=== PATIENT | male | born 1980 | race Caucasian/White ===

== ENCOUNTER 2021-12-13 11:24 | Inpatient (IN) ==
[2021-12-13] MEDS ORDERED: ULTANE GAS IN ONE (11:40)
[2021-12-13] MEDS ORDERED: KETAMINE HCL ONE (11:40)
[2021-12-13] MEDS ORDERED: XYLOCAINE 2 % (PLAIN) ONE (11:40)
[2021-12-13] MEDS: LR 1,000 ML IV 1,000 ML IV SCH ×2 (13:00→21:45)
[2021-12-13 13:22] LABS: BASOPHILS # (AUTO) 0.1 X10^3/uL (0.0-0.1); BASOPHILS % (AUTO) 0.9 % (0.2-1.0); EOSINOPHILS # (AUTO) 0.3 x10^3/uL (0.0-0.2); EOSINOPHILS % (AUTO) 2.5 % (0.9-2.9); HEMATOCRIT 44.6 % (42.0-54.0); HEMOGLOBIN 15.5 g/dL (13.5-18.0); LYMPHOCYTES # (AUTO) 4.9 X10^3/uL (1.3-2.9); MEAN CORPUSCULAR HEMOGLOBIN 30.2 pg (27.0-34.0); MEAN CORPUSCULAR HGB CONC 34.6 g/dL (33.0-35.0); MEAN CORPUSCULAR VOLUME 87.2 fL (80.0-100.0); MEAN PLATELET VOLUME 9.3 fL (7.4-11.0); MONOCYTES # (AUTO) 0.7 x10^3/uL (0.3-0.8); MONOCYTES % (AUTO) 6.1 % (0.0-13.0); NEUTROPHILS # (AUTO) 5.7 x10^3/uL (2.2-4.8); NEUTROPHILS % (AUTO) 48.5 % (42.0-75.0); RED BLOOD COUNT 5.12 X10^6/uL (4.7-6.0); RED CELL DISTRIBUTION WIDTH 20.6 % (11.6-16.5); WHITE BLOOD COUNT 11.7 X10^3/uL (3.6-10.0)
[2021-12-13 13:27] LABS: AMMONIA 15 umol/L (11-32)
[2021-12-13 13:31] LABS: BAND NEUTROPHILS % 2 % (0-10)
[2021-12-13 13:34] LABS: METAMYELOCYTES % 1
[2021-12-13 13:35] LABS: ANISOCYTOSIS 1+; PLATELET MORPHOLOGY COMMENT NORMAL (NORMAL)
[2021-12-13 13:39] LABS: ALANINE AMINOTRANSFERASE 150 Units/L (12-78); ALBUMIN 2.8 g/dL (3.4-5.0); ALKALINE PHOSPHATASE 551 Units/L (46-116); ASPARTATE AMINO TRANSFERASE 95 Units/L (15-37); BLOOD UREA NITROGEN 8 mg/dL (7-18); CALCIUM 8.7 mg/dL (8.5-10.1); CARBON DIOXIDE 22.4 mmol/L (21-32); CHLORIDE 99 mmol/L (98-107); COR CA(FOR HYPOALB) 9.7 mg/dL (8.5-10.1); COR NA(FOR HYPERGLY) 133 mmol/L (136-145); CREATININE 0.62 mg/dL (0.70-1.30); HDL CHOLESTEROL 11 mg/dL (40-60); SODIUM 133 mmol/L (136-145); TOTAL PROTEIN 8.2 g/dL (6.4-8.2); TRIGLYCERIDES 442 mg/dL (0-150); eGFR NON BLACK RACES > 60 (>60)
[2021-12-13 13:42] VITALS: BMI 29.7
[2021-12-13 13:54] LABS: CHOL/HDL RATIO 35.6 (0.0-5.0); CHOLESTEROL 392 mg/dL (0-200)
[2021-12-13] MEDS ORDERED: NS 100 ML IV 100 ML ONE (15:14)
[2021-12-13] MEDS: ZESTRIL TAB 10 MG PO SCH (15:35)
[2021-12-13] MEDS: VISTARIL PO PRN (23:49)
[2021-12-14] MEDS: LR 1,000 ML IV 1,000 ML IV SCH ×3 (04:50→20:59)
[2021-12-14 06:03] LABS: BASOPHILS # (AUTO) 0.3 X10^3/uL (0.0-0.1); BASOPHILS % (AUTO) 2.8 % (0.2-1.0); EOSINOPHILS # (AUTO) 0.2 x10^3/uL (0.0-0.2); EOSINOPHILS % (AUTO) 2.3 % (0.9-2.9); HEMATOCRIT 38.5 % (42.0-54.0); HEMOGLOBIN 13.7 g/dL (13.5-18.0); LYMPHOCYTES # (AUTO) 5.6 X10^3/uL (1.3-2.9); LYMPHOCYTES % (AUTO) 53.8 % (21.0-51.0); MEAN CORPUSCULAR HEMOGLOBIN 30.4 pg (27.0-34.0); MEAN CORPUSCULAR HGB CONC 35.6 g/dL (33.0-35.0); MEAN CORPUSCULAR VOLUME 85.3 fL (80.0-100.0); MEAN PLATELET VOLUME 9.5 fL (7.4-11.0); MONOCYTES # (AUTO) 0.8 x10^3/uL (0.3-0.8); MONOCYTES % (AUTO) 8.2 % (0.0-13.0); NEUTROPHILS # (AUTO) 3.4 x10^3/uL (2.2-4.8); NEUTROPHILS % (AUTO) 32.9 % (42.0-75.0); RED BLOOD COUNT 4.51 X10^6/uL (4.7-6.0); RED CELL DISTRIBUTION WIDTH 20.5 % (11.6-16.5); WHITE BLOOD COUNT 10.3 X10^3/uL (3.6-10.0)
[2021-12-14 06:18] LABS: ALANINE AMINOTRANSFERASE 125 Units/L (12-78); ALBUMIN 2.4 g/dL (3.4-5.0); ALKALINE PHOSPHATASE 486 Units/L (46-116); ASPARTATE AMINO TRANSFERASE 85 Units/L (15-37); BLOOD UREA NITROGEN 7 mg/dL (7-18); CALCIUM 8.3 mg/dL (8.5-10.1); CARBON DIOXIDE 23.5 mmol/L (21-32); CHLORIDE 101 mmol/L (98-107); COR CA(FOR HYPOALB) 9.6 mg/dL (8.5-10.1); COR NA(FOR HYPERGLY) 135 mmol/L (136-145); CREATININE 0.55 mg/dL (0.70-1.30); SODIUM 135 mmol/L (136-145); eGFR NON BLACK RACES > 60 (>60)
[2021-12-14 06:28] LABS: BAND NEUTROPHILS % 3 % (0-10)
[2021-12-14 06:29] LABS: ANISOCYTOSIS 1+; PLATELET MORPHOLOGY COMMENT NORMAL (NORMAL); TARGET CELLS 1+
[2021-12-14] MEDS: ZESTRIL TAB 10 MG PO SCH (08:48)
--- NOTE | 2021-12-14 12:57 | MRI ---
HISTORYJAUNDICE, ACOLIC STOOLSSTUDYMRI ABDOMEN W/WO CONTRASTCOMPARISONNoneTECHNIQUEMultiplan ar multi-sequence MRI of the abdomen with MRCP obtained without and with IV contrast.FINDINGSUnremarkable appearance of the liver. Cholelithiasis with stones in the gallbladder neck. The gallbladder is mildly distended. No intra or extrahepatic biliary ductal dilatation.The spleen pancreas, bilateral adrenal glands, and bilateral kidneys demonstrate no significant abnormality.Expected vascular flow voids. Marrow signal is benign. No free fluid in the abdomen.IMPRESSIONCholelithiasis. No evidence of choledocholithiasis. No biliary ductal dilatation. Nuclear medicine HIDA scan could better evaluate if clinical concern for acute cholecystitis.Electronically signed by: ANDRE ARANGO (Dec 14, 2021 12:54:57)
[2021-12-15] MEDS: LR 1,000 ML IV 1,000 ML IV SCH (04:41)
[2021-12-15 06:38] LABS: BASOPHILS # (AUTO) 0.2 X10^3/uL (0.0-0.1); BASOPHILS % (AUTO) 1.9 % (0.2-1.0); EOSINOPHILS # (AUTO) 0.4 x10^3/uL (0.0-0.2); EOSINOPHILS % (AUTO) 4.2 % (0.9-2.9); HEMATOCRIT 43.2 % (42.0-54.0); HEMOGLOBIN 14.8 g/dL (13.5-18.0); LYMPHOCYTES # (AUTO) 5.2 X10^3/uL (1.3-2.9); LYMPHOCYTES % (AUTO) 50.5 % (21.0-51.0); MEAN CORPUSCULAR HEMOGLOBIN 29.9 pg (27.0-34.0); MEAN CORPUSCULAR HGB CONC 34.3 g/dL (33.0-35.0); MEAN PLATELET VOLUME 9.1 fL (7.4-11.0); MONOCYTES # (AUTO) 0.9 x10^3/uL (0.3-0.8); MONOCYTES % (AUTO) 8.8 % (0.0-13.0); NEUTROPHILS # (AUTO) 3.6 x10^3/uL (2.2-4.8); NEUTROPHILS % (AUTO) 34.6 % (42.0-75.0); RED BLOOD COUNT 4.96 X10^6/uL (4.7-6.0); RED CELL DISTRIBUTION WIDTH 20.9 % (11.6-16.5); WHITE BLOOD COUNT 10.4 X10^3/uL (3.6-10.0)
[2021-12-15 06:54] LABS: ALANINE AMINOTRANSFERASE 128 Units/L (12-78); ALBUMIN 2.6 g/dL (3.4-5.0); ALKALINE PHOSPHATASE 537 Units/L (46-116); ASPARTATE AMINO TRANSFERASE 87 Units/L (15-37); BLOOD UREA NITROGEN 7 mg/dL (7-18); CALCIUM 8.7 mg/dL (8.5-10.1); CARBON DIOXIDE 22.9 mmol/L (21-32); CHLORIDE 100 mmol/L (98-107); COR CA(FOR HYPOALB) 9.8 mg/dL (8.5-10.1); SODIUM 135 mmol/L (136-145); TOTAL PROTEIN 7.7 g/dL (6.4-8.2); eGFR NON BLACK RACES > 60 (>60)
[2021-12-15 07:33] LABS: ANISOCYTOSIS 1+; PLATELET MORPHOLOGY COMMENT NORMAL (NORMAL); TARGET CELLS 2+
[2021-12-15] MEDS: ZESTRIL TAB 10 MG PO SCH (09:05)
[2021-12-15] MEDS: NS 1,000 ML IV 1,000 ML IV SCH ×2 (13:50→20:24)
[2021-12-15] MEDS ORDERED: LR 1,000 ML IV 1,000 ML IV ONE (14:50)
[2021-12-15] MEDS ORDERED: ANCEF VIAL 1 GRAM ONE (14:50)
[2021-12-15] MEDS ORDERED: NS 100 ML IV 100 ML ONE (14:50)
[2021-12-15] MEDS ORDERED: DIPRIVAN VIAL 20 ML ONE (15:06)
[2021-12-15] MEDS ORDERED: OFIRMEV IV 1000 MG VIAL 0 MG/0 ML VIAL IV ONE (15:06)
[2021-12-15] MEDS ORDERED: ZOFRAN INJ 4 MG VIAL ONE (15:06)
[2021-12-15] MEDS ORDERED: PEPCID 20 MG VIAL ONE (15:06)
[2021-12-15] MEDS ORDERED: BRIDION ONE ×2 (15:06→17:21)
[2021-12-15] MEDS ORDERED: ZEMURON 100 MG VIAL ONE (15:06)
[2021-12-15] MEDS ORDERED: ROBINUL ONE ×2 (15:06→15:39)
[2021-12-15] MEDS ORDERED: VERSED ONE (15:09)
[2021-12-15] MEDS ORDERED: FENTANYL VIAL INJ 100 mcg ONE ×2 (15:09→16:56)
[2021-12-15] MEDS ORDERED: LACRI-LUBE S.O.P. ONE (15:48)
[2021-12-15] MEDS ORDERED: DECADRON INJ ONE (16:04)
[2021-12-15] MEDS ORDERED: NS 1,000 ML IV 2,000 ML ONE (16:12)
[2021-12-15] MEDS ORDERED: BREVIBLOC ONE (16:14)
[2021-12-15] MEDS ORDERED: DILAUDID INJ ONE (17:16)
[2021-12-15] MEDS ORDERED: BACTROBAN TOPICAL OINT ONE (17:28)
[2021-12-15] MEDS: DILAUDID INJ IVP PRN ×2 (17:45→17:50)
[2021-12-15] MEDS ORDERED: REGLAN INJ 10 MG VIAL IVP PRN (17:49)
[2021-12-15] MEDS ORDERED: ZOFRAN INJ 4 MG VIAL IVP PRN (17:49)
[2021-12-15] MEDS ORDERED: BENADRYL INJ 50 MG VIAL IVP PRN (17:49)
[2021-12-15] MEDS ORDERED: PHENERGAN INJ 25 MG IM PRN (17:49)
[2021-12-15] MEDS ORDERED: BARHEMSYS INJ IVP PRN (17:49)
[2021-12-15] MEDS: NICOTINE PATCH TD SCH ×2 (20:36→20:40)
[2021-12-15 23:08] LABS: BILIRUBIN,URINE 2+ (NEGATIVE); BLOOD/HEMOGLOBIN,URINE 1+ (NEGATIVE); GLUCOSE, URINE NEGATIVE (NEGATIVE); KETONES,URINE NEGATIVE (NEGATIVE); LEUKOCYTE ESTERASE ,URINE NEGATIVE (NEGATIVE); NITRITES,URINE NEGATIVE (NEGATIVE); PROTEIN,URINE NEGATIVE (NEGATIVE); UROBILINOGEN,URINE 1+ (NORMAL)
[2021-12-15 23:17] LABS: APPEARANCE,URINE HAZY (CLEAR); COLOR,URINE DARK YELLOW (YELLOW)
[2021-12-15 23:18] LABS: BACTERIA,URINE TRACE /HPF (NEGATIVE); RBC,URINE 0-2 /HPF (0-3); SQUAMOUS EPITHELIAL CELL,UR RARE /HPF (NEGATIVE)
[2021-12-16] MEDS: NS 1,000 ML IV 1,000 ML IV SCH ×3 (01:37→17:32)
[2021-12-16 06:16] LABS: HEPATITIS B SURFACE ANTIGEN Negative (Negative)
[2021-12-16 06:36] LABS: BASOPHILS # (AUTO) 0.4 X10^3/uL (0.0-0.1); BASOPHILS % (AUTO) 2.3 % (0.2-1.0); EOSINOPHILS % (AUTO) 0.1 % (0.9-2.9); HEMATOCRIT 39.4 % (42.0-54.0); HEMOGLOBIN 13.6 g/dL (13.5-18.0); LYMPHOCYTES # (AUTO) 4.6 X10^3/uL (1.3-2.9); LYMPHOCYTES % (AUTO) 26.6 % (21.0-51.0); MEAN CORPUSCULAR HGB CONC 34.5 g/dL (33.0-35.0); MEAN PLATELET VOLUME 9.6 fL (7.4-11.0); MONOCYTES # (AUTO) 0.5 x10^3/uL (0.3-0.8); MONOCYTES % (AUTO) 2.9 % (0.0-13.0); NEUTROPHILS # (AUTO) 11.8 x10^3/uL (2.2-4.8); NEUTROPHILS % (AUTO) 68.1 % (42.0-75.0); RED BLOOD COUNT 4.53 X10^6/uL (4.7-6.0); RED CELL DISTRIBUTION WIDTH 20.7 % (11.6-16.5); WHITE BLOOD COUNT 17.4 X10^3/uL (3.6-10.0)
[2021-12-16 06:38] LABS: ALANINE AMINOTRANSFERASE 105 Units/L (12-78); ALBUMIN 2.2 g/dL (3.4-5.0); ALKALINE PHOSPHATASE 486 Units/L (46-116); ASPARTATE AMINO TRANSFERASE 76 Units/L (15-37); BLOOD UREA NITROGEN 9 mg/dL (7-18); CALCIUM 8.3 mg/dL (8.5-10.1); CARBON DIOXIDE 25.2 mmol/L (21-32); CHLORIDE 99 mmol/L (98-107); COR CA(FOR HYPOALB) 9.7 mg/dL (8.5-10.1); COR NA(FOR HYPERGLY) 137 mmol/L (136-145); SODIUM 134 mmol/L (136-145); TOTAL PROTEIN 6.9 g/dL (6.4-8.2); eGFR NON BLACK RACES > 60 (>60)
[2021-12-16 07:23] LABS: BAND NEUTROPHILS % 4 % (0-10); MYELOCYTES % 1; PLATELET MORPHOLOGY COMMENT NORMAL (NORMAL)
[2021-12-16 07:24] LABS: ANISOCYTOSIS 1+; TARGET CELLS 2+
--- NOTE | 2021-12-16 07:52 | DR.PROGNOT ---
Hospital Progress Notes - Progress Note for Day of: Progress Note Date: 12/16/21 - Chief Complaint Chief Complaint: s/p partial cholecystectomy and removal of gallstones . 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 mild abdominal pain . no bile drainage in KEE . Bilirubun 10 . slight improvement of LFT . - Past Medical Family Social History Past Med/Fam/Surg Hx: No changes since H&P Allergies: Allergies No Known Drug Allergies Allergy (Verified 07/15/20 10:13) - Review Of Systems ROS: No change since H&P - Vital Signs Vital Signs: Temperature 98.8 F Pulse Rate [Radial] 78 Pulse Rate 75 Respiratory Rate 18 Blood Pressure [Right Arm] 133/75 Blood Pressure [Left Arm] 138/92 Blood Pressure 119/71 O2 Sat by Pulse Oximetry 97 - Physical Exam Oriented: Normal Ear: Normal Nose: Normal Respiratory: Normal Cardiovascular: Normal : Normal GI:Auscultation: Normal GI:Palpation: Normal GI: Tenderness: Diffuse Mood Description: Calm Speech Pattern: Clear, Appropriate - Laboratory and Diagnostics Result Diagrams: 12/16/21 05:16 12/16/21 05:16 Labs: 12/15/21 16:57 Gallbladder Fluid - Preliminary Laboratory WBC 17.4 X10^3/uL (3.6-10.0) H 12/16/21 05:16 RBC 4.53 X10^6/uL (4.7-6.0) L 12/16/21 05:16 Hgb 13.6 g/dL (13.5-18.0) 12/16/21 05:16 Hct 39.4 % (42.0-54.0) L 12/16/21 05:16 MCV 87.0 fL (80.0-100.0) 12/16/21 05:16 MCH 30.0 pg (27.0-34.0) 12/16/21 05:16 MCHC 34.5 g/dL (33.0-35.0) 12/16/21 05:16 RDW 20.7 % (11.6-16.5) H 12/16/21 05:16 Plt Count 346 X10^3/uL (150.0-450.0) 12/16/21 05:16 Plt Count Comment Adequate (ADEQUATE) 12/16/21 05:16 MPV 9.6 fL (7.4-11.0) 12/16/21 05:16 Neut % (Auto) 68.1 % (42.0-75.0) 12/16/21 05:16 Lymph % (Auto) 26.6 % (21.0-51.0) 12/16/21 05:16 [place] % (Auto) 2.9 % (0.0-13.0) 12/16/21 05:16 Eos % (Auto) 0.1 % (0.9-2.9) L 12/16/21 05:16 Baso % (Auto) 2.3 % (0.2-1.0) H 12/16/21 05:16 Neut # (Auto) 11.8 x10^3/uL (2.2-4.8) H 12/16/21 05:16 Lymph # (Auto) 4.6 X10^3/uL (1.3-2.9) H 12/16/21 05:16 [place] # (Auto) 0.5 x10^3/uL (0.3-0.8) 12/16/21 05:16 Eos # (Auto) 0.0 x10^3/uL (0.0-0.2) 12/16/21 05:16 Baso # (Auto) 0.4 X10^3/uL (0.0-0.1) H 12/16/21 05:16 Absolute Nucleated RBC 0.0 /100WBC 12/16/21 05:16 Total Counted 100 12/16/21 05:16 Neutrophils % (Manual) 75 % (39-76) 12/16/21 05:16 Band Neutrophils % 4 % (0-10) 12/16/21 05:16 Lymphocytes % (Manual) 17 % (13-43) 12/16/21 05:16 Monocytes % (Manual) 3 % (4-9) L 12/16/21 05:16 Eosinophils % (Manual) 5 % (0-6) 12/14/21 05:15 Metamyelocytes % 1 12/13/21 13:05 Myelocytes % 1 12/16/21 05:16 Plt Morphology Comment Normal (NORMAL) 12/16/21 05:16 RBC Morphology Abnormal (NORMAL) 12/16/21 05:16 Anisocytosis 1+ A 12/16/21 05:16 Target Cells 2+ A 12/16/21 05:16 Sodium 134 mmol/L (136-145) L 12/16/21 05:16 Corrected Sodium 137 mmol/L (136-145) 12/16/21 05:16 Potassium 3.8 mmol/L (3.5-5.1) 12/16/21 05:16 Chloride 99 mmol/L (98-107) 12/16/21 05:16 Carbon Dioxide 25.2 mmol/L (21-32) 12/16/21 05:16 BUN 9 mg/dL (7-18) 12/16/21 05:16 Creatinine 0.80 mg/dL (0.70-1.30) 12/16/21 05:16 Est GFR (MDRD) Af Amer > 60 (>60) 12/16/21 05:16 Est GFR (MDRD) Non-Af > 60 (>60) 12/16/21 05:16 Glucose 212 mg/dL (65-99) H 12/16/21 05:16 Calcium 8.3 mg/dL (8.5-10.1) L 12/16/21 05:16 Corrected Calcium 9.7 mg/dL (8.5-10.1) 12/16/21 05:16 Total Bilirubin 10.10 mg/dL (0.2-1.0) H 12/16/21 05:16 AST 76 Units/L (15-37) H 12/16/21 05:16 ALT 105 Units/L (12-78) H 12/16/21 05:16 Alkaline Phosphatase 486 Units/L (46-116) H 12/16/21 05:16 Ammonia 15 umol/L (11-32) 12/13/21 13:05 Total Protein 6.9 g/dL (6.4-8.2) 12/16/21 05:16 Albumin 2.2 g/dL (3.4-5.0) L 12/16/21 05:16 Globulin 4.7 g/dL (2.5-4.5) H 12/16/21 05:16 Albumin/Globulin Ratio 0.5 Ratio (1.1-2.1) L 12/16/21 05:16 Triglycerides 442 mg/dL (0-150) H 12/13/21 13:05 Cholesterol 392 mg/dL (0-200) H 12/13/21 13:05 LDL Cholesterol, Calc 293 mg/dL (0-100) H 12/13/21 13:05 HDL Cholesterol 11 mg/dL (40-60) L 12/13/21 13:05 Cholesterol/HDL Ratio 35.6 (0.0-5.0) H 12/13/21 13:05 Specimen Type Clean catch urine 12/15/21 23:01 Urine Color Dark yellow (YELLOW) 12/15/21 23:01 Urine Appearance Hazy (CLEAR) 12/15/21 23:01 Urine pH 6.0 (5.0 - 8.0) 12/15/21 23:01 Ur Specific [place] 1.015 (1.000-1.030) 12/15/21 23:01 Urine Protein Negative (NEGATIVE) 12/15/21 23:01 Urine Glucose (UA) Negative (NEGATIVE) 12/15/21 23:01 Urine Ketones Negative (NEGATIVE) 12/15/21 23:01 Urine Blood 1+ (NEGATIVE) 12/15/21 23:01 Urine Nitrite Negative (NEGATIVE) 12/15/21 23:01 Urine Bilirubin 2+ (NEGATIVE) 12/15/21 23:01 Urine Urobilinogen 1+ (NORMAL) 12/15/21 23:01 Ur Leukocyte Esterase Negative (NEGATIVE) 12/15/21 23:01 Urine RBC 0-2 /HPF (0-3) 12/15/21 23:01 Urine WBC 0-2 /HPF (0-5) 12/15/21 23:01 Ur Squamous Epith Cells Rare /HPF (NEGATIVE) 12/15/21 23:01 Urine Bacteria Trace /HPF (NEGATIVE) 12/15/21 23:01 Ur Culture Indicated? No/not indicated 12/15/21 23:01 SARS-CoV-2 (PCR) Negative (NEGATIVE) 12/14/21 10:15 Hepatitis A IgM Ab Negative (Negative) 12/13/21 13:05 Hep Bs Antigen Negative (Negative) 12/13/21 13:05 Hep Bs Ag Confirmation TNP 12/13/21 13:05 Hep B Core IgM Ab Negative (Negative) 12/13/21 13:05 Hepatitis C Ab Index 0.08 IV 12/13/21 13:05 Hepatitis C Interp Negative (Negative) 12/13/21 13:05 Hepatitis Interpret See note 12/13/21 13:05 Influenza Type A (PCR) Negative (NEGATIVE) 12/14/21 10:15 Influenza Type B (PCR) Negative (NEGATIVE) 12/14/21 10:15 RSV (PCR) Negative (NEGATIVE) 12/14/21 10:15 Cytology Specimen Cancelled 12/15/21 16:51 Tissue Pathology To follow 12/15/21 16:51 - Assessment and Plan 1: post op partial henry, removal of all gallstones .drainage , liver Bx . suspicion for sclerosing cholangitis ./. to advance diet .
[2021-12-16] MEDS: LEVAQUIN PREMIX IV 500 MG 500 MG/100 ML BAG IV SCH (09:10)
[2021-12-16] MEDS: NICOTINE PATCH TD SCH (09:11)
[2021-12-16] MEDS: ZESTRIL TAB 10 MG PO SCH (09:11)
[2021-12-16] MEDS: DILAUDID INJ IVP PRN (20:42)
[2021-12-17] MEDS: NS 1,000 ML IV 1,000 ML IV SCH ×3 (01:30→17:06)
[2021-12-17] MEDS: DILAUDID INJ IVP PRN ×3 (05:56→20:08)
[2021-12-17 06:04] LABS: BASOPHILS # (AUTO) 0.3 X10^3/uL (0.0-0.1); BASOPHILS % (AUTO) 2.2 % (0.2-1.0); EOSINOPHILS # (AUTO) 0.1 x10^3/uL (0.0-0.2); EOSINOPHILS % (AUTO) 0.9 % (0.9-2.9); HEMATOCRIT 39.5 % (42.0-54.0); HEMOGLOBIN 13.5 g/dL (13.5-18.0); LYMPHOCYTES % (AUTO) 13.7 % (21.0-51.0); MEAN CORPUSCULAR HEMOGLOBIN 29.9 pg (27.0-34.0); MEAN CORPUSCULAR HGB CONC 34.3 g/dL (33.0-35.0); MEAN CORPUSCULAR VOLUME 87.3 fL (80.0-100.0); MEAN PLATELET VOLUME 9.3 fL (7.4-11.0); MONOCYTES # (AUTO) 1.2 x10^3/uL (0.3-0.8); MONOCYTES % (AUTO) 8.4 % (0.0-13.0); NEUTROPHILS % (AUTO) 74.8 % (42.0-75.0); RED BLOOD COUNT 4.53 X10^6/uL (4.7-6.0); RED CELL DISTRIBUTION WIDTH 20.6 % (11.6-16.5); WHITE BLOOD COUNT 14.7 X10^3/uL (3.6-10.0)
[2021-12-17 06:16] LABS: ALANINE AMINOTRANSFERASE 87 Units/L (12-78); ALBUMIN 2.1 g/dL (3.4-5.0); ALKALINE PHOSPHATASE 434 Units/L (46-116); ASPARTATE AMINO TRANSFERASE 64 Units/L (15-37); BLOOD UREA NITROGEN 11 mg/dL (7-18); CALCIUM 7.8 mg/dL (8.5-10.1); CARBON DIOXIDE 24.2 mmol/L (21-32); CHLORIDE 101 mmol/L (98-107); COR CA(FOR HYPOALB) 9.3 mg/dL (8.5-10.1); COR NA(FOR HYPERGLY) 135 mmol/L (136-145); CREATININE 0.65 mg/dL (0.70-1.30); SODIUM 134 mmol/L (136-145); TOTAL PROTEIN 6.8 g/dL (6.4-8.2); eGFR NON BLACK RACES > 60 (>60)
[2021-12-17 06:43] LABS: BAND NEUTROPHILS % 2 % (0-10)
[2021-12-17 06:44] LABS: ANISOCYTOSIS 1+; PLATELET MORPHOLOGY COMMENT NORMAL (NORMAL); TARGET CELLS 2+
[2021-12-17] MEDS: LEVAQUIN PREMIX IV 500 MG 500 MG/100 ML BAG IV SCH (08:28)
[2021-12-17] MEDS: NICOTINE PATCH TD SCH (08:28)
[2021-12-17] MEDS: ZESTRIL TAB 10 MG PO SCH (08:28)
--- NOTE | 2021-12-17 09:20 | DR.PROGNOT ---
Hospital Progress Notes - Progress Note for Day of: Progress Note Date: 12/17/21 - Chief Complaint Chief Complaint: s/p partial cholecystectomy and removal of gallstones . 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 mild abdominal pain . no bile drainage in KEE . Bilirubun 8.6...Alk PH 434.. tolerating diet well. slight improvement of LFT . - Past Medical Family Social History Past Med/Fam/Surg Hx: No changes since H&P Allergies: Allergies No Known Drug Allergies Allergy (Verified 07/15/20 10:13) - Review Of Systems ROS: No change since H&P - Vital Signs Vital Signs: Temperature 97.3 F Pulse Rate [Radial] 74 Pulse Rate 64 Respiratory Rate 18 Blood Pressure [Right Arm] 137/80 Blood Pressure [Left Arm] 138/92 Blood Pressure 119/71 O2 Sat by Pulse Oximetry 95 - Physical Exam Oriented: Normal Ear: Normal Nose: Normal Respiratory: Normal Cardiovascular: Normal : Normal GI:Auscultation: Normal GI:Palpation: Normal GI: Tenderness: Diffuse Mood Description: Calm Speech Pattern: Clear, Appropriate - Laboratory and Diagnostics Result Diagrams: 12/17/21 05:13 12/17/21 05:13 Labs: 12/15/21 16:57 Gallbladder Fluid - Preliminary Laboratory WBC 14.7 X10^3/uL (3.6-10.0) H 12/17/21 05:13 RBC 4.53 X10^6/uL (4.7-6.0) L 12/17/21 05:13 Hgb 13.5 g/dL (13.5-18.0) 12/17/21 05:13 Hct 39.5 % (42.0-54.0) L 12/17/21 05:13 MCV 87.3 fL (80.0-100.0) 12/17/21 05:13 MCH 29.9 pg (27.0-34.0) 12/17/21 05:13 MCHC 34.3 g/dL (33.0-35.0) 12/17/21 05:13 RDW 20.6 % (11.6-16.5) H 12/17/21 05:13 Plt Count 337 X10^3/uL (150.0-450.0) 12/17/21 05:13 Plt Count Comment Adequate (ADEQUATE) 12/17/21 05:13 MPV 9.3 fL (7.4-11.0) 12/17/21 05:13 Neut % (Auto) 74.8 % (42.0-75.0) 12/17/21 05:13 Lymph % (Auto) 13.7 % (21.0-51.0) L 12/17/21 05:13 [place] % (Auto) 8.4 % (0.0-13.0) 12/17/21 05:13 Eos % (Auto) 0.9 % (0.9-2.9) 12/17/21 05:13 Baso % (Auto) 2.2 % (0.2-1.0) H 12/17/21 05:13 Neut # (Auto) 11.0 x10^3/uL (2.2-4.8) H 12/17/21 05:13 Lymph # (Auto) 2.0 X10^3/uL (1.3-2.9) 12/17/21 05:13 [place] # (Auto) 1.2 x10^3/uL (0.3-0.8) H 12/17/21 05:13 Eos # (Auto) 0.1 x10^3/uL (0.0-0.2) 12/17/21 05:13 Baso # (Auto) 0.3 X10^3/uL (0.0-0.1) H 12/17/21 05:13 Absolute Nucleated RBC 0.0 /100WBC 12/17/21 05:13 Total Counted 100 12/17/21 05:13 Neutrophils % (Manual) 79 % (39-76) H 12/17/21 05:13 Band Neutrophils % 2 % (0-10) 12/17/21 05:13 Lymphocytes % (Manual) 15 % (13-43) 12/17/21 05:13 Monocytes % (Manual) 3 % (4-9) L 12/17/21 05:13 Eosinophils % (Manual) 1 % (0-6) 12/17/21 05:13 Metamyelocytes % 1 12/13/21 13:05 Myelocytes % 1 12/16/21 05:16 Plt Morphology Comment Normal (NORMAL) 12/17/21 05:13 RBC Morphology Abnormal (NORMAL) 12/17/21 05:13 Anisocytosis 1+ A 12/17/21 05:13 Target Cells 2+ A 12/17/21 05:13 Sodium 134 mmol/L (136-145) L 12/17/21 05:13 Corrected Sodium 135 mmol/L (136-145) L 12/17/21 05:13 Potassium 3.4 mmol/L (3.5-5.1) L 12/17/21 05:13 Chloride 101 mmol/L (98-107) 12/17/21 05:13 Carbon Dioxide 24.2 mmol/L (21-32) 12/17/21 05:13 BUN 11 mg/dL (7-18) 12/17/21 05:13 Creatinine 0.65 mg/dL (0.70-1.30) L 12/17/21 05:13 Est GFR (MDRD) Af Amer > 60 (>60) 12/17/21 05:13 Est GFR (MDRD) Non-Af > 60 (>60) 12/17/21 05:13 Glucose 139 mg/dL (65-99) H 12/17/21 05:13 Calcium 7.8 mg/dL (8.5-10.1) L 12/17/21 05:13 Corrected Calcium 9.3 mg/dL (8.5-10.1) 12/17/21 05:13 Total Bilirubin 8.60 mg/dL (0.2-1.0) H 12/17/21 05:13 AST 64 Units/L (15-37) H 12/17/21 05:13 ALT 87 Units/L (12-78) H 12/17/21 05:13 Alkaline Phosphatase 434 Units/L (46-116) H 12/17/21 05:13 Ammonia 15 umol/L (11-32) 12/13/21 13:05 Total Protein 6.8 g/dL (6.4-8.2) 12/17/21 05:13 Albumin 2.1 g/dL (3.4-5.0) L 12/17/21 05:13 Globulin 4.7 g/dL (2.5-4.5) H 12/17/21 05:13 Albumin/Globulin Ratio 0.4 Ratio (1.1-2.1) L 12/17/21 05:13 Triglycerides 442 mg/dL (0-150) H 12/13/21 13:05 Cholesterol 392 mg/dL (0-200) H 12/13/21 13:05 LDL Cholesterol, Calc 293 mg/dL (0-100) H 12/13/21 13:05 HDL Cholesterol 11 mg/dL (40-60) L 12/13/21 13:05 Cholesterol/HDL Ratio 35.6 (0.0-5.0) H 12/13/21 13:05 Carcinoembryonic Ag 2.1 ng/mL (<=3.8) 12/15/21 05:58 CA 19-9 Antigen 8 U/mL (<=35) 12/15/21 05:58 Specimen Type Clean catch urine 12/15/21 23:01 Urine Color Dark yellow (YELLOW) 12/15/21 23:01 Urine Appearance Hazy (CLEAR) 12/15/21 23:01 Urine pH 6.0 (5.0 - 8.0) 12/15/21 23:01 Ur Specific [place] 1.015 (1.000-1.030) 12/15/21 23:01 Urine Protein Negative (NEGATIVE) 12/15/21 23:01 Urine Glucose (UA) Negative (NEGATIVE) 12/15/21 23:01 Urine Ketones Negative (NEGATIVE) 12/15/21 23:01 Urine Blood 1+ (NEGATIVE) 12/15/21 23:01 Urine Nitrite Negative (NEGATIVE) 12/15/21 23:01 Urine Bilirubin 2+ (NEGATIVE) 12/15/21 23:01 Urine Urobilinogen 1+ (NORMAL) 12/15/21 23:01 Ur Leukocyte Esterase Negative (NEGATIVE) 12/15/21 23:01 Urine RBC 0-2 /HPF (0-3) 12/15/21 23:01 Urine WBC 0-2 /HPF (0-5) 12/15/21 23:01 Ur Squamous Epith Cells Rare /HPF (NEGATIVE) 12/15/21 23:01 Urine Bacteria Trace /HPF (NEGATIVE) 12/15/21 23:01 Ur Culture Indicated? No/not indicated 12/15/21 23:01 SARS-CoV-2 (PCR) Negative (NEGATIVE) 12/14/21 10:15 Hepatitis A IgM Ab Negative (Negative) 12/13/21 13:05 Hep Bs Antigen Negative (Negative) 12/13/21 13:05 Hep Bs Ag Confirmation TNP 12/13/21 13:05 Hep B Core IgM Ab Negative (Negative) 12/13/21 13:05 Hepatitis C Ab Index 0.08 IV 12/13/21 13:05 Hepatitis C Interp Negative (Negative) 12/13/21 13:05 Hepatitis Interpret See note 12/13/21 13:05 Influenza Type A (PCR) Negative (NEGATIVE) 12/14/21 10:15 Influenza Type B (PCR) Negative (NEGATIVE) 12/14/21 10:15 RSV (PCR) Negative (NEGATIVE) 12/14/21 10:15 Cytology Specimen Cancelled 12/15/21 16:51 Tissue Pathology To follow 12/15/21 16:51 - Assessment and Plan 1: post op partial henry, removal of all gallstones .drainage , liver Bx . suspicion for sclerosing cholangitis .. to advance diet . to keep over the weekend .. on IV antibiotics ..
[2021-12-17] MEDS: VISTARIL PO PRN (23:01)
[2021-12-18] MEDS: NS 1,000 ML IV 1,000 ML IV SCH ×5 (00:29→19:19)
[2021-12-18] MEDS: DILAUDID INJ IVP PRN ×2 (05:35→23:39)
[2021-12-18 06:55] LABS: ALANINE AMINOTRANSFERASE 85 Units/L (12-78); ALKALINE PHOSPHATASE 423 Units/L (46-116); ASPARTATE AMINO TRANSFERASE 65 Units/L (15-37); BLOOD UREA NITROGEN 8 mg/dL (7-18); CARBON DIOXIDE 24.2 mmol/L (21-32); CHLORIDE 101 mmol/L (98-107); COR CA(FOR HYPOALB) 9.6 mg/dL (8.5-10.1); COR NA(FOR HYPERGLY) 136 mmol/L (136-145); CREATININE 0.55 mg/dL (0.70-1.30); MAGNESIUM 1.8 mg/dL (1.7-2.9); SODIUM 135 mmol/L (136-145); TOTAL PROTEIN 6.5 g/dL (6.4-8.2); eGFR NON BLACK RACES > 60 (>60)
[2021-12-18 07:22] LABS: BASOPHILS # (AUTO) 0.1 X10^3/uL (0.0-0.1); BASOPHILS % (AUTO) 0.5 % (0.2-1.0); EOSINOPHILS # (AUTO) 0.3 x10^3/uL (0.0-0.2); EOSINOPHILS % (AUTO) 2.4 % (0.9-2.9); HEMATOCRIT 38.4 % (42.0-54.0); HEMOGLOBIN 13.4 g/dL (13.5-18.0); LYMPHOCYTES # (AUTO) 3.9 X10^3/uL (1.3-2.9); LYMPHOCYTES % (AUTO) 34.7 % (21.0-51.0); MEAN CORPUSCULAR HEMOGLOBIN 30.1 pg (27.0-34.0); MEAN CORPUSCULAR HGB CONC 34.8 g/dL (33.0-35.0); MEAN CORPUSCULAR VOLUME 86.4 fL (80.0-100.0); MEAN PLATELET VOLUME 9.4 fL (7.4-11.0); MONOCYTES # (AUTO) 0.8 x10^3/uL (0.3-0.8); MONOCYTES % (AUTO) 7.3 % (0.0-13.0); NEUTROPHILS # (AUTO) 6.2 x10^3/uL (2.2-4.8); NEUTROPHILS % (AUTO) 55.1 % (42.0-75.0); RED BLOOD COUNT 4.45 X10^6/uL (4.7-6.0); WHITE BLOOD COUNT 11.3 X10^3/uL (3.6-10.0)
[2021-12-18 07:41] LABS: BAND NEUTROPHILS % 3 % (0-10)
[2021-12-18 07:42] LABS: ANISOCYTOSIS 1+; PLATELET MORPHOLOGY COMMENT NORMAL (NORMAL); TARGET CELLS PRESENT
[2021-12-18] MEDS: LEVAQUIN PREMIX IV 500 MG 500 MG/100 ML BAG IV SCH (08:28)
[2021-12-18] MEDS: ZESTRIL TAB 10 MG PO SCH (08:28)
[2021-12-18] MEDS: NICOTINE PATCH TD SCH (09:00)
--- NOTE | 2021-12-18 10:39 | PCM.PROG ---
Progress Note Progress Note for Day of Date of Exam: 12/18/21 Subjective Subjective: Pt is a 41 year old male that is status post partial cholecystectomy with removal of all gallstones. He continues to have some drainage noted in KEE drain. He also had a liver biopsy that was done, awaiting results. There is suspicion for sclerosing cholangitis. This morning patient reports feeling about the same as yesterday. No acute events overnight. He is jaundiced, Alert and oriented x 3. Labs were obtained this morning: Wbc 11.3, Hgb 13.4, Plt 321, Na 135, K 3.5, Creatinine 0.55, Glucose 126, Total bilirubin 10, AST 65, ALT 85, ALKP 423. Plan to continue to advance diet. Keep over the weekend and continue with IV antibiotics Levaquin. Pain control and IVF NS@125ml/h. Will continue to monitor and follow up labs in the morning. Past Medical Family Social History Past Med/Fam/Surg Hx: No changes since H&P Allergies: Allergies No Known Drug Allergies Allergy (Verified 07/15/20 10:13) Review of Systems ROS: No change since H&P Vital Signs and I&O's Vital Signs: Temperature 98 F Pulse Rate [Radial] 72 Pulse Rate 64 Respiratory Rate 20 Blood Pressure [Right Arm] 118/73 Blood Pressure [Left Arm] 138/92 Blood Pressure 119/71 O2 Sat by Pulse Oximetry 95 Intake and Output: Intake & Output 12/15/21 12/16/21 12/17/21 12/18/21 23:59 23:59 23:59 23:59 Intake Total 6509 / 6509 5182 / 5182 4471 / 4471 1542 / 1542 Output Total 4590 / 4590 3385 / 3385 555 / 555 75 / 75 Balance 1919 / 191 1797 / 1797 3916 / 3916 1467 / 1467 Physical Exam Oriented: Normal Ear: Normal Nose: Normal Respiratory: Normal Cardiovascular: Normal : Normal Auscultation: Bowel Sounds: Normal Tenderness: Diffuse Skin: Other (jaundice) Mood Description: Calm Speech Pattern: Clear and Appropriate Laboratory and Diagnostics Result Diagrams: 12/18/21 06:03 12/18/21 06:03 Labs: 12/15/21 16:57 Gallbladder Fluid - Final Laboratory WBC 11.3 X10^3/uL (3.6-10.0) H 12/18/21 06:03 RBC 4.45 X10^6/uL (4.7-6.0) L 12/18/21 06:03 Hgb 13.4 g/dL (13.5-18.0) L 12/18/21 06:03 Hct 38.4 % (42.0-54.0) L 12/18/21 06:03 MCV 86.4 fL (80.0-100.0) 12/18/21 06:03 MCH 30.1 pg (27.0-34.0) 12/18/21 06:03 MCHC 34.8 g/dL (33.0-35.0) 12/18/21 06:03 RDW 21.0 % (11.6-16.5) H 12/18/21 06:03 Plt Count 321 X10^3/uL (150.0-450.0) 12/18/21 06:03 Plt Count Comment Adequate (ADEQUATE) 12/18/21 06:03 MPV 9.4 fL (7.4-11.0) 12/18/21 06:03 Neut % (Auto) 55.1 % (42.0-75.0) 12/18/21 06:03 Lymph % (Auto) 34.7 % (21.0-51.0) 12/18/21 06:03 [place] % (Auto) 7.3 % (0.0-13.0) 12/18/21 06:03 Eos % (Auto) 2.4 % (0.9-2.9) 12/18/21 06:03 Baso % (Auto) 0.5 % (0.2-1.0) 12/18/21 06:03 Neut # (Auto) 6.2 x10^3/uL (2.2-4.8) H 12/18/21 06:03 Lymph # (Auto) 3.9 X10^3/uL (1.3-2.9) H 12/18/21 06:03 [place] # (Auto) 0.8 x10^3/uL (0.3-0.8) 12/18/21 06:03 Eos # (Auto) 0.3 x10^3/uL (0.0-0.2) H 12/18/21 06:03 Baso # (Auto) 0.1 X10^3/uL (0.0-0.1) 12/18/21 06:03 Absolute Nucleated RBC 0.0 /100WBC 12/18/21 06:03 Total Counted 100 12/18/21 06:03 Neutrophils % (Manual) 60 % (39-76) 12/18/21 06:03 Band Neutrophils % 3 % (0-10) 12/18/21 06:03 Lymphocytes % (Manual) 25 % (13-43) 12/18/21 06:03 Monocytes % (Manual) 9 % (4-9) 12/18/21 06:03 Eosinophils % (Manual) 3 % (0-6) 12/18/21 06:03 Metamyelocytes % 1 12/13/21 13:05 Myelocytes % 1 12/16/21 05:16 Plt Morphology Comment Normal (NORMAL) 12/18/21 06:03 RBC Morphology Abnormal (NORMAL) 12/18/21 06:03 Anisocytosis 1+ A 12/18/21 06:03 Target Cells Present 12/18/21 06:03 Sodium 135 mmol/L (136-145) L 12/18/21 06:03 Corrected Sodium 136 mmol/L (136-145) 12/18/21 06:03 Potassium 3.5 mmol/L (3.5-5.1) 12/18/21 06:03 Chloride 101 mmol/L (98-107) 12/18/21 06:03 Carbon Dioxide 24.2 mmol/L (21-32) 12/18/21 06:03 BUN 8 mg/dL (7-18) 12/18/21 06:03 Creatinine 0.55 mg/dL (0.70-1.30) L 12/18/21 06:03 Est GFR (MDRD) Af Amer > 60 (>60) 12/18/21 06:03 Est GFR (MDRD) Non-Af > 60 (>60) 12/18/21 06:03 Glucose 126 mg/dL (65-99) H 12/18/21 06:03 Calcium 8.0 mg/dL (8.5-10.1) L 12/18/21 06:03 Corrected Calcium 9.6 mg/dL (8.5-10.1) 12/18/21 06:03 Magnesium 1.8 mg/dL (1.7-2.9) 12/18/21 06:03 Total Bilirubin 10.00 mg/dL (0.2-1.0) H 12/18/21 06:03 AST 65 Units/L (15-37) H 12/18/21 06:03 ALT 85 Units/L (12-78) H 12/18/21 06:03 Alkaline Phosphatase 423 Units/L (46-116) H 12/18/21 06:03 Ammonia 15 umol/L (11-32) 12/13/21 13:05 Total Protein 6.5 g/dL (6.4-8.2) 12/18/21 06:03 Albumin 2.0 g/dL (3.4-5.0) L 12/18/21 06:03 Globulin 4.5 g/dL (2.5-4.5) 12/18/21 06:03 Albumin/Globulin Ratio 0.4 Ratio (1.1-2.1) L 12/18/21 06:03 Triglycerides 442 mg/dL (0-150) H 12/13/21 13:05 Cholesterol 392 mg/dL (0-200) H 12/13/21 13:05 LDL Cholesterol, Calc 293 mg/dL (0-100) H 12/13/21 13:05 HDL Cholesterol 11 mg/dL (40-60) L 12/13/21 13:05 Cholesterol/HDL Ratio 35.6 (0.0-5.0) H 12/13/21 13:05 Carcinoembryonic Ag 2.1 ng/mL (<=3.8) 12/15/21 05:58 CA 19-9 Antigen 8 U/mL (<=35) 12/15/21 05:58 Specimen Type Clean catch urine 12/15/21 23:01 Urine Color Dark yellow (YELLOW) 12/15/21 23:01 Urine Appearance Hazy (CLEAR) 12/15/21 23:01 Urine pH 6.0 (5.0 - 8.0) 12/15/21 23:01 Ur Specific [place] 1.015 (1.000-1.030) 12/15/21 23:01 Urine Protein Negative (NEGATIVE) 12/15/21 23:01 Urine Glucose (UA) Negative (NEGATIVE) 12/15/21 23:01 Urine Ketones Negative (NEGATIVE) 12/15/21 23:01 Urine Blood 1+ (NEGATIVE) 12/15/21 23:01 Urine Nitrite Negative (NEGATIVE) 12/15/21 23:01 Urine Bilirubin 2+ (NEGATIVE) 12/15/21 23:01 Urine Urobilinogen 1+ (NORMAL) 12/15/21 23:01 Ur Leukocyte Esterase Negative (NEGATIVE) 12/15/21 23:01 Urine RBC 0-2 /HPF (0-3) 12/15/21 23:01 Urine WBC 0-2 /HPF (0-5) 12/15/21 23:01 Ur Squamous Epith Cells Rare /HPF (NEGATIVE) 12/15/21 23:01 Urine Bacteria Trace /HPF (NEGATIVE) 12/15/21 23:01 Ur Culture Indicated? No/not indicated 12/15/21 23:01 SARS-CoV-2 (PCR) Negative (NEGATIVE) 12/14/21 10:15 Hepatitis A IgM Ab Negative (Negative) 12/13/21 13:05 Hep Bs Antigen Negative (Negative) 12/13/21 13:05 Hep Bs Ag Confirmation TNP 12/13/21 13:05 Hep B Core IgM Ab Negative (Negative) 12/13/21 13:05 Hepatitis C Ab Index 0.08 IV 12/13/21 13:05 Hepatitis C Interp Negative (Negative) 12/13/21 13:05 Hepatitis Interpret See note 12/13/21 13:05 Influenza Type A (PCR) Negative (NEGATIVE) 12/14/21 10:15 Influenza Type B (PCR) Negative (NEGATIVE) 12/14/21 10:15 RSV (PCR) Negative (NEGATIVE) 12/14/21 10:15 Cytology Specimen Cancelled 12/15/21 16:51 Tissue Pathology To follow 12/15/21 16:51 Plan (1) Jaundice: Status: Acute (2) Acholic stool: Status: Acute (3) Elevated liver enzymes: Status: Acute (4) S/P cholecystectomy: Status: Acute
[2021-12-18] MEDS ORDERED: MICRO K EXTEN CAP 10 MEQ PO PRN (13:56)
[2021-12-18] MEDS ORDERED: POTASSIUM CHL 60 MEQ/NS 0.45% 500 ML IV PRN (13:56)
[2021-12-18] MEDS ORDERED: K-RIDER 10 MEQ/NS 100 ML 10 MEQ/100 ML BAG IV PRN (13:56)
[2021-12-18] MEDS ORDERED: KLOR-CON PO PRN (13:56)
[2021-12-18] MEDS ORDERED: POTASSIUM CHL 40 MEQ/NS 0.45% 500 ML IV PRN (13:56)
[2021-12-18] MEDS ORDERED: POTASSIUM CHLORIDE LIQ 20 MEQ UDC PO PRN (13:56)
[2021-12-18] MEDS: MAGNESIUM SULFATE 1 GRAM/100 mL PREMIX 1 G/100 ML BAG IV PRN ×2 (14:52→16:26)
[2021-12-18] MEDS: K-DUR TAB 20 MEQ PO PRN (14:53)
[2021-12-19] MEDS: VISTARIL PO PRN (02:55)
[2021-12-19] MEDS: NS 1,000 ML IV 1,000 ML IV SCH ×5 (02:57→19:55)
[2021-12-19] MEDS: DILAUDID INJ IVP PRN ×3 (03:36→21:05)
[2021-12-19 05:46] LABS: BASOPHILS # (AUTO) 0.1 X10^3/uL (0.0-0.1); BASOPHILS % (AUTO) 1.1 % (0.2-1.0); EOSINOPHILS # (AUTO) 0.4 x10^3/uL (0.0-0.2); EOSINOPHILS % (AUTO) 2.6 % (0.9-2.9); HEMATOCRIT 40.2 % (42.0-54.0); HEMOGLOBIN 13.7 g/dL (13.5-18.0); LYMPHOCYTES # (AUTO) 5.8 X10^3/uL (1.3-2.9); LYMPHOCYTES % (AUTO) 43.4 % (21.0-51.0); MEAN CORPUSCULAR HGB CONC 34.1 g/dL (33.0-35.0); MEAN CORPUSCULAR VOLUME 88.2 fL (80.0-100.0); MONOCYTES # (AUTO) 0.6 x10^3/uL (0.3-0.8); MONOCYTES % (AUTO) 4.8 % (0.0-13.0); NEUTROPHILS # (AUTO) 6.5 x10^3/uL (2.2-4.8); NEUTROPHILS % (AUTO) 48.1 % (42.0-75.0); RED BLOOD COUNT 4.56 X10^6/uL (4.7-6.0); RED CELL DISTRIBUTION WIDTH 20.9 % (11.6-16.5); WHITE BLOOD COUNT 13.4 X10^3/uL (3.6-10.0)
[2021-12-19 06:08] LABS: BAND NEUTROPHILS % 2 % (0-10)
[2021-12-19 06:09] LABS: BASOPHILS % (MANUAL) 1 % (0-1); METAMYELOCYTES % 1; MYELOCYTES % 2; PLATELET MORPHOLOGY COMMENT NORMAL (NORMAL)
[2021-12-19 06:10] LABS: ALANINE AMINOTRANSFERASE 80 Units/L (12-78); ALKALINE PHOSPHATASE 428 Units/L (46-116); ASPARTATE AMINO TRANSFERASE 60 Units/L (15-37); BLOOD UREA NITROGEN 7 mg/dL (7-18); CALCIUM 7.9 mg/dL (8.5-10.1); CARBON DIOXIDE 22.5 mmol/L (21-32); CHLORIDE 101 mmol/L (98-107); COR CA(FOR HYPOALB) 9.5 mg/dL (8.5-10.1); COR NA(FOR HYPERGLY) 134 mmol/L (136-145); MAGNESIUM 1.9 mg/dL (1.7-2.9); SODIUM 133 mmol/L (136-145); TOTAL PROTEIN 6.7 g/dL (6.4-8.2); eGFR NON BLACK RACES > 60 (>60)
[2021-12-19 06:11] LABS: ANISOCYTOSIS 1+; TARGET CELLS 2+
[2021-12-19] MEDS: K-DUR TAB 20 MEQ PO PRN (06:17)
[2021-12-19] MEDS: ZESTRIL TAB 10 MG PO SCH (08:52)
[2021-12-19] MEDS: LEVAQUIN PREMIX IV 500 MG 500 MG/100 ML BAG IV SCH (08:52)
[2021-12-19] MEDS: NICOTINE PATCH TD SCH (08:55)
--- NOTE | 2021-12-19 10:20 | PCM.PROG ---
Progress Note Progress Note for Day of Date of Exam: 12/19/21 Subjective Subjective: Pt is a 41 year old male that is status post partial cholecystectomy with removal of all gallstones. This morning he is resting comfortably in bed, reports feeling a little better. No acute events overnight. He continues to have some drainage noted in KEE drain. He also had a liver biopsy that was done, awaiting pathology results that may be back by Monday or Monday. There is suspicion for sclerosing cholangitis. He is jaundiced, Alert and oriented x 3. Labs were obtained this morning: Wbc 13.4, Hgb 13.7, Plt 337, Na 134, K 3.6, Creatinine 0.60, Glucose 123, Total bilirubin 8.7, AST 60, ALT 80, ALKP 428. Plan to continue to advance diet. Keep over the weekend and continue with IV antibiotics Levaquin. Pain control and IVF NS@125ml/h. Will continue to monitor and follow up labs in the morning. Past Medical Family Social History Past Med/Fam/Surg Hx: No changes since H&P Allergies: Allergies No Known Drug Allergies Allergy (Verified 07/15/20 10:13) Review of Systems ROS: No change since H&P Vital Signs and I&O's Vital Signs: Temperature 98.0 F Pulse Rate [Radial] 62 Pulse Rate 67 Respiratory Rate 20 Blood Pressure [Right Arm] 121/67 Blood Pressure [Left Arm] 138/92 Blood Pressure 119/71 O2 Sat by Pulse Oximetry 94 Intake and Output: Intake & Output 12/16/21 12/17/21 12/18/21 12/19/21 23:59 23:59 23:59 23:59 Intake Total 5182 / 5182 4471 / 4471 5665 / 5665 1515 / 1515 Output Total 3385 / 3385 555 / 555 215 / 215 50 / 50 Balance 1797 / 1797 3916 / 3916 5450 / 5450 1465 / 1465 Physical Exam Oriented: Normal Ear: Normal Nose: Normal Respiratory: Normal Cardiovascular: Normal : Normal Auscultation: Bowel Sounds: Normal Tenderness: Diffuse Skin: Other (jaundice) Mood Description: Calm Speech Pattern: Clear and Appropriate Laboratory and Diagnostics Result Diagrams: 12/19/21 05:15 12/19/21 05:15 Labs: 12/15/21 16:57 Gallbladder Fluid - Final Laboratory WBC 13.4 X10^3/uL (3.6-10.0) H 12/19/21 05:15 RBC 4.56 X10^6/uL (4.7-6.0) L 12/19/21 05:15 Hgb 13.7 g/dL (13.5-18.0) 12/19/21 05:15 Hct 40.2 % (42.0-54.0) L 12/19/21 05:15 MCV 88.2 fL (80.0-100.0) 12/19/21 05:15 MCH 30.0 pg (27.0-34.0) 12/19/21 05:15 MCHC 34.1 g/dL (33.0-35.0) 12/19/21 05:15 RDW 20.9 % (11.6-16.5) H 12/19/21 05:15 Plt Count 337 X10^3/uL (150.0-450.0) 12/19/21 05:15 Plt Count Comment Adequate (ADEQUATE) 12/19/21 05:15 MPV 9.0 fL (7.4-11.0) 12/19/21 05:15 Neut % (Auto) 48.1 % (42.0-75.0) 12/19/21 05:15 Lymph % (Auto) 43.4 % (21.0-51.0) 12/19/21 05:15 [place] % (Auto) 4.8 % (0.0-13.0) 12/19/21 05:15 Eos % (Auto) 2.6 % (0.9-2.9) 12/19/21 05:15 Baso % (Auto) 1.1 % (0.2-1.0) H 12/19/21 05:15 Neut # (Auto) 6.5 x10^3/uL (2.2-4.8) H 12/19/21 05:15 Lymph # (Auto) 5.8 X10^3/uL (1.3-2.9) H 12/19/21 05:15 [place] # (Auto) 0.6 x10^3/uL (0.3-0.8) 12/19/21 05:15 Eos # (Auto) 0.4 x10^3/uL (0.0-0.2) H 12/19/21 05:15 Baso # (Auto) 0.1 X10^3/uL (0.0-0.1) 12/19/21 05:15 Absolute Nucleated RBC 0.0 /100WBC 12/19/21 05:15 Total Counted 100 12/19/21 05:15 Neutrophils % (Manual) 63 % (39-76) 12/19/21 05:15 Band Neutrophils % 2 % (0-10) 12/19/21 05:15 Lymphocytes % (Manual) 23 % (13-43) 12/19/21 05:15 Monocytes % (Manual) 4 % (4-9) 12/19/21 05:15 Eosinophils % (Manual) 4 % (0-6) 12/19/21 05:15 Basophils % (Manual) 1 % (0-1) 12/19/21 05:15 Metamyelocytes % 1 12/19/21 05:15 Myelocytes % 2 12/19/21 05:15 Plt Morphology Comment Normal (NORMAL) 12/19/21 05:15 RBC Morphology Abnormal (NORMAL) 12/19/21 05:15 Anisocytosis 1+ A 12/19/21 05:15 Target Cells 2+ A 12/19/21 05:15 Sodium 133 mmol/L (136-145) L 12/19/21 05:15 Corrected Sodium 134 mmol/L (136-145) L 12/19/21 05:15 Potassium 3.6 mmol/L (3.5-5.1) 12/19/21 05:15 Chloride 101 mmol/L (98-107) 12/19/21 05:15 Carbon Dioxide 22.5 mmol/L (21-32) 12/19/21 05:15 BUN 7 mg/dL (7-18) 12/19/21 05:15 Creatinine 0.60 mg/dL (0.70-1.30) L 12/19/21 05:15 Est GFR (MDRD) Af Amer > 60 (>60) 12/19/21 05:15 Est GFR (MDRD) Non-Af > 60 (>60) 12/19/21 05:15 Glucose 123 mg/dL (65-99) H 12/19/21 05:15 Calcium 7.9 mg/dL (8.5-10.1) L 12/19/21 05:15 Corrected Calcium 9.5 mg/dL (8.5-10.1) 12/19/21 05:15 Magnesium 1.9 mg/dL (1.7-2.9) 12/19/21 05:15 Total Bilirubin 8.70 mg/dL (0.2-1.0) H 12/19/21 05:15 AST 60 Units/L (15-37) H 12/19/21 05:15 ALT 80 Units/L (12-78) H 12/19/21 05:15 Alkaline Phosphatase 428 Units/L (46-116) H 12/19/21 05:15 Ammonia 15 umol/L (11-32) 12/13/21 13:05 Total Protein 6.7 g/dL (6.4-8.2) 12/19/21 05:15 Albumin 2.0 g/dL (3.4-5.0) L 12/19/21 05:15 Globulin 4.7 g/dL (2.5-4.5) H 12/19/21 05:15 Albumin/Globulin Ratio 0.4 Ratio (1.1-2.1) L 12/19/21 05:15 Triglycerides 442 mg/dL (0-150) H 12/13/21 13:05 Cholesterol 392 mg/dL (0-200) H 12/13/21 13:05 LDL Cholesterol, Calc 293 mg/dL (0-100) H 12/13/21 13:05 HDL Cholesterol 11 mg/dL (40-60) L 12/13/21 13:05 Cholesterol/HDL Ratio 35.6 (0.0-5.0) H 12/13/21 13:05 Carcinoembryonic Ag 2.1 ng/mL (<=3.8) 12/15/21 05:58 CA 19-9 Antigen 8 U/mL (<=35) 12/15/21 05:58 Specimen Type Clean catch urine 12/15/21 23:01 Urine Color Dark yellow (YELLOW) 12/15/21 23:01 Urine Appearance Hazy (CLEAR) 12/15/21 23:01 Urine pH 6.0 (5.0 - 8.0) 12/15/21 23:01 Ur Specific [place] 1.015 (1.000-1.030) 12/15/21 23:01 Urine Protein Negative (NEGATIVE) 12/15/21 23:01 Urine Glucose (UA) Negative (NEGATIVE) 12/15/21 23:01 Urine Ketones Negative (NEGATIVE) 12/15/21 23:01 Urine Blood 1+ (NEGATIVE) 12/15/21 23:01 Urine Nitrite Negative (NEGATIVE) 12/15/21 23:01 Urine Bilirubin 2+ (NEGATIVE) 12/15/21 23:01 Urine Urobilinogen 1+ (NORMAL) 12/15/21 23:01 Ur Leukocyte Esterase Negative (NEGATIVE) 12/15/21 23:01 Urine RBC 0-2 /HPF (0-3) 12/15/21 23:01 Urine WBC 0-2 /HPF (0-5) 12/15/21 23:01 Ur Squamous Epith Cells Rare /HPF (NEGATIVE) 12/15/21 23:01 Urine Bacteria Trace /HPF (NEGATIVE) 12/15/21 23:01 Ur Culture Indicated? No/not indicated 12/15/21 23:01 SARS-CoV-2 (PCR) Negative (NEGATIVE) 12/14/21 10:15 Hepatitis A IgM Ab Negative (Negative) 12/13/21 13:05 Hep Bs Antigen Negative (Negative) 12/13/21 13:05 Hep Bs Ag Confirmation TNP 12/13/21 13:05 Hep B Core IgM Ab Negative (Negative) 12/13/21 13:05 Hepatitis C Ab Index 0.08 IV 12/13/21 13:05 Hepatitis C Interp Negative (Negative) 12/13/21 13:05 Hepatitis Interpret See note 12/13/21 13:05 Influenza Type A (PCR) Negative (NEGATIVE) 12/14/21 10:15 Influenza Type B (PCR) Negative (NEGATIVE) 12/14/21 10:15 RSV (PCR) Negative (NEGATIVE) 12/14/21 10:15 Cytology Specimen Cancelled 12/15/21 16:51 Tissue Pathology To follow 12/15/21 16:51 Plan (1) Jaundice: Status: Acute (2) Acholic stool: Status: Acute (3) Elevated liver enzymes: Status: Acute (4) S/P cholecystectomy: Status: Acute
[2021-12-19] MEDS ORDERED: MAG-OX TAB PO ONE (10:52)
[2021-12-20] MEDS: DILAUDID INJ IVP PRN ×5 (00:47→22:24)
[2021-12-20] MEDS: VISTARIL PO PRN (00:47)
[2021-12-20] MEDS: NS 1,000 ML IV 1,000 ML IV SCH ×4 (01:47→20:31)
[2021-12-20 05:12] LABS: MEAN PLATELET VOLUME 8.7 fL (7.4-11.0)
[2021-12-20 05:18] LABS: ALANINE AMINOTRANSFERASE 74 Units/L (12-78); ALBUMIN 1.9 g/dL (3.4-5.0); ALKALINE PHOSPHATASE 425 Units/L (46-116); ASPARTATE AMINO TRANSFERASE 56 Units/L (15-37); BASOPHILS # (AUTO) 0.1 X10^3/uL (0.0-0.1); BASOPHILS % (AUTO) 0.7 % (0.2-1.0); BLOOD UREA NITROGEN 10 mg/dL (7-18); CALCIUM 8.1 mg/dL (8.5-10.1); CARBON DIOXIDE 24.6 mmol/L (21-32); CHLORIDE 100 mmol/L (98-107); COR CA(FOR HYPOALB) 9.8 mg/dL (8.5-10.1); EOSINOPHILS # (AUTO) 0.6 x10^3/uL (0.0-0.2); EOSINOPHILS % (AUTO) 4.3 % (0.9-2.9); HEMATOCRIT 38.9 % (42.0-54.0); HEMOGLOBIN 13.6 g/dL (13.5-18.0); LYMPHOCYTES # (AUTO) 4.6 X10^3/uL (1.3-2.9); LYMPHOCYTES % (AUTO) 33.6 % (21.0-51.0); MAGNESIUM 1.8 mg/dL (1.7-2.9); MEAN CORPUSCULAR HGB CONC 34.9 g/dL (33.0-35.0); MONOCYTES # (AUTO) 0.6 x10^3/uL (0.3-0.8); MONOCYTES % (AUTO) 4.4 % (0.0-13.0); NEUTROPHILS # (AUTO) 7.7 x10^3/uL (2.2-4.8); RED BLOOD COUNT 4.52 X10^6/uL (4.7-6.0); RED CELL DISTRIBUTION WIDTH 20.5 % (11.6-16.5); SODIUM 133 mmol/L (136-145); TOTAL PROTEIN 6.7 g/dL (6.4-8.2); WHITE BLOOD COUNT 13.6 X10^3/uL (3.6-10.0); eGFR NON BLACK RACES > 60 (>60)
[2021-12-20 05:53] LABS: BAND NEUTROPHILS % 2 % (0-10); BASOPHILS % (MANUAL) 1 % (0-1)
[2021-12-20 05:54] LABS: ANISOCYTOSIS 1+; METAMYELOCYTES % 2; MYELOCYTES % 1; PLATELET MORPHOLOGY COMMENT NORMAL (NORMAL); TARGET CELLS 2+
[2021-12-20] MEDS: MAGNESIUM SULFATE 1 GRAM/100 mL PREMIX 1 G/100 ML BAG IV PRN ×2 (07:26→09:07)
[2021-12-20] MEDS: K-DUR TAB 20 MEQ PO PRN (09:06)
[2021-12-20] MEDS: NICOTINE PATCH TD SCH (09:10)
[2021-12-20] MEDS: ZESTRIL TAB 10 MG PO SCH (09:10)
[2021-12-20] MEDS: LEVAQUIN PREMIX IV 500 MG 500 MG/100 ML BAG IV SCH (10:39)
--- NOTE | 2021-12-20 10:51 | PCM.PROG ---
Progress Note Progress Note for Day of Date of Exam: 12/20/21 Subjective Subjective: Pt is a 41 year old male that is status post partial cholecystectomy with removal of all gallstones. This morning patient is doing better. No acute events overnight. He also had a liver biopsy that was done, awaiting pathology results that may be back by Monday or Monday. There is suspicion for sclerosing cholangitis. He is jaundiced, Alert and oriented x 3. He labs continue to gradually improve. Labs were obtained this morning: Wbc 13.6, Hgb 13.6, Plt 346, Na 133, K 3.6, Creatinine 0.60, Glucose 100, Total bilirubin 7.5, AST 56, ALT 74, ALKP 425. Plan to continue to advance diet. Continue with IV antibiotics Levaquin. Pain control and IVF NS@125ml/h. Will continue to monitor and follow up labs in the morning. Past Medical Family Social History Past Med/Fam/Surg Hx: No changes since H&P Allergies: Allergies No Known Drug Allergies Allergy (Verified 07/15/20 10:13) Review of Systems ROS: No change since H&P Vital Signs and I&O's Vital Signs: Temperature 98.8 F Pulse Rate [Radial] 69 Pulse Rate 67 Respiratory Rate 18 Blood Pressure [Right Arm] 109/59 Blood Pressure [Left Arm] 138/92 Blood Pressure 119/71 O2 Sat by Pulse Oximetry 95 Intake and Output: Intake & Output 12/17/21 12/18/21 12/19/21 12/20/21 23:59 23:59 23:59 23:59 Intake Total 4471 / 4471 5665 / 5665 5640 / 5640 1294 / 1294 Output Total 555 / 555 215 / 215 145 / 145 30 / 30 Balance 3916 / 3916 5450 / 5450 5495 / 5495 1264 / 1264 Physical Exam Oriented: Normal Ear: Normal Nose: Normal Respiratory: Normal Cardiovascular: Normal : Normal Auscultation: Bowel Sounds: Normal Tenderness: Diffuse Skin: Other (jaundice) Mood Description: Calm Speech Pattern: Clear and Appropriate Laboratory and Diagnostics Result Diagrams: 12/20/21 04:55 12/20/21 04:55 Labs: 12/15/21 16:57 Gallbladder Fluid - Final Laboratory WBC 13.6 X10^3/uL (3.6-10.0) H 12/20/21 04:55 RBC 4.52 X10^6/uL (4.7-6.0) L 12/20/21 04:55 Hgb 13.6 g/dL (13.5-18.0) 12/20/21 04:55 Hct 38.9 % (42.0-54.0) L 12/20/21 04:55 MCV 86.0 fL (80.0-100.0) 12/20/21 04:55 MCH 30.0 pg (27.0-34.0) 12/20/21 04:55 MCHC 34.9 g/dL (33.0-35.0) 12/20/21 04:55 RDW 20.5 % (11.6-16.5) H 12/20/21 04:55 Plt Count 346 X10^3/uL (150.0-450.0) 12/20/21 04:55 Plt Count Comment Adequate (ADEQUATE) 12/20/21 04:55 MPV 8.7 fL (7.4-11.0) 12/20/21 04:55 Neut % (Auto) 57.0 % (42.0-75.0) 12/20/21 04:55 Lymph % (Auto) 33.6 % (21.0-51.0) 12/20/21 04:55 [place] % (Auto) 4.4 % (0.0-13.0) 12/20/21 04:55 Eos % (Auto) 4.3 % (0.9-2.9) H 12/20/21 04:55 Baso % (Auto) 0.7 % (0.2-1.0) 12/20/21 04:55 Neut # (Auto) 7.7 x10^3/uL (2.2-4.8) H 12/20/21 04:55 Lymph # (Auto) 4.6 X10^3/uL (1.3-2.9) H 12/20/21 04:55 [place] # (Auto) 0.6 x10^3/uL (0.3-0.8) 12/20/21 04:55 Eos # (Auto) 0.6 x10^3/uL (0.0-0.2) H 12/20/21 04:55 Baso # (Auto) 0.1 X10^3/uL (0.0-0.1) 12/20/21 04:55 Absolute Nucleated RBC 0.0 /100WBC 12/20/21 04:55 Total Counted 100 12/20/21 04:55 Neutrophils % (Manual) 56 % (39-76) 12/20/21 04:55 Band Neutrophils % 2 % (0-10) 12/20/21 04:55 Lymphocytes % (Manual) 28 % (13-43) 12/20/21 04:55 Monocytes % (Manual) 4 % (4-9) 12/20/21 04:55 Eosinophils % (Manual) 6 % (0-6) 12/20/21 04:55 Basophils % (Manual) 1 % (0-1) 12/20/21 04:55 Metamyelocytes % 2 12/20/21 04:55 Myelocytes % 1 12/20/21 04:55 Atypical Lymphocytes Rare 12/20/21 04:55 Plt Morphology Comment Normal (NORMAL) 12/20/21 04:55 RBC Morphology Abnormal (NORMAL) 12/20/21 04:55 Anisocytosis 1+ A 12/20/21 04:55 Target Cells 2+ A 12/20/21 04:55 Sodium 133 mmol/L (136-145) L 12/20/21 04:55 Corrected Sodium TNP 12/20/21 04:55 Potassium 3.6 mmol/L (3.5-5.1) 12/20/21 04:55 Chloride 100 mmol/L (98-107) 12/20/21 04:55 Carbon Dioxide 24.6 mmol/L (21-32) 12/20/21 04:55 BUN 10 mg/dL (7-18) 12/20/21 04:55 Creatinine 0.60 mg/dL (0.70-1.30) L 12/20/21 04:55 Est GFR (MDRD) Af Amer > 60 (>60) 12/20/21 04:55 Est GFR (MDRD) Non-Af > 60 (>60) 12/20/21 04:55 Glucose 100 mg/dL (65-99) H 12/20/21 04:55 Calcium 8.1 mg/dL (8.5-10.1) L 12/20/21 04:55 Corrected Calcium 9.8 mg/dL (8.5-10.1) 12/20/21 04:55 Magnesium 1.8 mg/dL (1.7-2.9) 12/20/21 04:55 Total Bilirubin 7.50 mg/dL (0.2-1.0) H 12/20/21 04:55 AST 56 Units/L (15-37) H 12/20/21 04:55 ALT 74 Units/L (12-78) 12/20/21 04:55 Alkaline Phosphatase 425 Units/L (46-116) H 12/20/21 04:55 Ammonia 15 umol/L (11-32) 12/13/21 13:05 Total Protein 6.7 g/dL (6.4-8.2) 12/20/21 04:55 Albumin 1.9 g/dL (3.4-5.0) L 12/20/21 04:55 Globulin 4.8 g/dL (2.5-4.5) H 12/20/21 04:55 Albumin/Globulin Ratio 0.4 Ratio (1.1-2.1) L 12/20/21 04:55 Triglycerides 442 mg/dL (0-150) H 12/13/21 13:05 Cholesterol 392 mg/dL (0-200) H 12/13/21 13:05 LDL Cholesterol, Calc 293 mg/dL (0-100) H 12/13/21 13:05 HDL Cholesterol 11 mg/dL (40-60) L 12/13/21 13:05 Cholesterol/HDL Ratio 35.6 (0.0-5.0) H 12/13/21 13:05 Carcinoembryonic Ag 2.1 ng/mL (<=3.8) 12/15/21 05:58 CA 19-9 Antigen 8 U/mL (<=35) 12/15/21 05:58 Specimen Type Clean catch urine 12/15/21 23:01 Urine Color Dark yellow (YELLOW) 12/15/21 23:01 Urine Appearance Hazy (CLEAR) 12/15/21 23:01 Urine pH 6.0 (5.0 - 8.0) 12/15/21 23:01 Ur Specific [place] 1.015 (1.000-1.030) 12/15/21 23:01 Urine Protein Negative (NEGATIVE) 12/15/21 23:01 Urine Glucose (UA) Negative (NEGATIVE) 12/15/21 23:01 Urine Ketones Negative (NEGATIVE) 12/15/21 23:01 Urine Blood 1+ (NEGATIVE) 12/15/21 23:01 Urine Nitrite Negative (NEGATIVE) 12/15/21 23:01 Urine Bilirubin 2+ (NEGATIVE) 12/15/21 23:01 Urine Urobilinogen 1+ (NORMAL) 12/15/21 23:01 Ur Leukocyte Esterase Negative (NEGATIVE) 12/15/21 23:01 Urine RBC 0-2 /HPF (0-3) 12/15/21 23:01 Urine WBC 0-2 /HPF (0-5) 12/15/21 23:01 Ur Squamous Epith Cells Rare /HPF (NEGATIVE) 12/15/21 23:01 Urine Bacteria Trace /HPF (NEGATIVE) 12/15/21 23:01 Ur Culture Indicated? No/not indicated 12/15/21 23:01 SARS-CoV-2 (PCR) Negative (NEGATIVE) 12/14/21 10:15 Hepatitis A IgM Ab Negative (Negative) 12/13/21 13:05 Hep Bs Antigen Negative (Negative) 12/13/21 13:05 Hep Bs Ag Confirmation TNP 12/13/21 13:05 Hep B Core IgM Ab Negative (Negative) 12/13/21 13:05 Hepatitis C Ab Index 0.08 IV 12/13/21 13:05 Hepatitis C Interp Negative (Negative) 12/13/21 13:05 Hepatitis Interpret See note 12/13/21 13:05 Influenza Type A (PCR) Negative (NEGATIVE) 12/14/21 10:15 Influenza Type B (PCR) Negative (NEGATIVE) 12/14/21 10:15 RSV (PCR) Negative (NEGATIVE) 12/14/21 10:15 Cytology Specimen Cancelled 12/15/21 16:51 Tissue Pathology To follow 12/15/21 16:51 Plan (1) Jaundice: Status: Acute (2) Acholic stool: Status: Acute (3) Elevated liver enzymes: Status: Acute (4) S/P cholecystectomy: Status: Acute
--- NOTE | 2021-12-20 16:36 | DR.PROGNOT ---
Hospital Progress Notes - Progress Note for Day of: Progress Note Date: 12/20/21 - Chief Complaint Chief Complaint: s/p partial cholecystectomy and removal of gallstones . 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 denies abdominal pain . no bile drainage in KEE . Bilirubun 7.5...Alk PH 434.. tolerating diet well. slight improvement of LFT . - Past Medical Family Social History Past Med/Fam/Surg Hx: No changes since H&P Allergies: Allergies No Known Drug Allergies Allergy (Verified 07/15/20 10:13) - Review Of Systems ROS: No change since H&P - Vital Signs Vital Signs: Temperature 98.5 F Pulse Rate [Radial] 63 Pulse Rate 67 Respiratory Rate 20 Blood Pressure [Right Arm] 117/71 Blood Pressure [Left Arm] 138/92 Blood Pressure 119/71 O2 Sat by Pulse Oximetry 97 - Physical Exam Oriented: Normal Ear: Normal Nose: Normal Respiratory: Normal Cardiovascular: Normal : Normal GI:Auscultation: Normal GI:Palpation: Normal GI: Tenderness: Diffuse Skin: Other (jaundice) Mood Description: Calm Speech Pattern: Clear, Appropriate - Laboratory and Diagnostics Result Diagrams: 12/20/21 04:55 12/20/21 12:05 Labs: 12/15/21 16:57 Gallbladder Fluid - Final Laboratory WBC 13.6 X10^3/uL (3.6-10.0) H 12/20/21 04:55 RBC 4.52 X10^6/uL (4.7-6.0) L 12/20/21 04:55 Hgb 13.6 g/dL (13.5-18.0) 12/20/21 04:55 Hct 38.9 % (42.0-54.0) L 12/20/21 04:55 MCV 86.0 fL (80.0-100.0) 12/20/21 04:55 MCH 30.0 pg (27.0-34.0) 12/20/21 04:55 MCHC 34.9 g/dL (33.0-35.0) 12/20/21 04:55 RDW 20.5 % (11.6-16.5) H 12/20/21 04:55 Plt Count 346 X10^3/uL (150.0-450.0) 12/20/21 04:55 Plt Count Comment Adequate (ADEQUATE) 12/20/21 04:55 MPV 8.7 fL (7.4-11.0) 12/20/21 04:55 Neut % (Auto) 57.0 % (42.0-75.0) 12/20/21 04:55 Lymph % (Auto) 33.6 % (21.0-51.0) 12/20/21 04:55 [place] % (Auto) 4.4 % (0.0-13.0) 12/20/21 04:55 Eos % (Auto) 4.3 % (0.9-2.9) H 12/20/21 04:55 Baso % (Auto) 0.7 % (0.2-1.0) 12/20/21 04:55 Neut # (Auto) 7.7 x10^3/uL (2.2-4.8) H 12/20/21 04:55 Lymph # (Auto) 4.6 X10^3/uL (1.3-2.9) H 12/20/21 04:55 [place] # (Auto) 0.6 x10^3/uL (0.3-0.8) 12/20/21 04:55 Eos # (Auto) 0.6 x10^3/uL (0.0-0.2) H 12/20/21 04:55 Baso # (Auto) 0.1 X10^3/uL (0.0-0.1) 12/20/21 04:55 Absolute Nucleated RBC 0.0 /100WBC 12/20/21 04:55 Total Counted 100 12/20/21 04:55 Neutrophils % (Manual) 56 % (39-76) 12/20/21 04:55 Band Neutrophils % 2 % (0-10) 12/20/21 04:55 Lymphocytes % (Manual) 28 % (13-43) 12/20/21 04:55 Monocytes % (Manual) 4 % (4-9) 12/20/21 04:55 Eosinophils % (Manual) 6 % (0-6) 12/20/21 04:55 Basophils % (Manual) 1 % (0-1) 12/20/21 04:55 Metamyelocytes % 2 12/20/21 04:55 Myelocytes % 1 12/20/21 04:55 Atypical Lymphocytes Rare 12/20/21 04:55 Plt Morphology Comment Normal (NORMAL) 12/20/21 04:55 RBC Morphology Abnormal (NORMAL) 12/20/21 04:55 Anisocytosis 1+ A 12/20/21 04:55 Target Cells 2+ A 12/20/21 04:55 Sodium 133 mmol/L (136-145) L 12/20/21 04:55 Corrected Sodium TNP 12/20/21 04:55 Potassium 4.0 mmol/L (3.5-5.1) 12/20/21 12:05 Chloride 100 mmol/L (98-107) 12/20/21 04:55 Carbon Dioxide 24.6 mmol/L (21-32) 12/20/21 04:55 BUN 10 mg/dL (7-18) 12/20/21 04:55 Creatinine 0.60 mg/dL (0.70-1.30) L 12/20/21 04:55 Est GFR (MDRD) Af Amer > 60 (>60) 12/20/21 04:55 Est GFR (MDRD) Non-Af > 60 (>60) 12/20/21 04:55 Glucose 100 mg/dL (65-99) H 12/20/21 04:55 Calcium 8.1 mg/dL (8.5-10.1) L 12/20/21 04:55 Corrected Calcium 9.8 mg/dL (8.5-10.1) 12/20/21 04:55 Magnesium 1.8 mg/dL (1.7-2.9) 12/20/21 04:55 Total Bilirubin 7.50 mg/dL (0.2-1.0) H 12/20/21 04:55 AST 56 Units/L (15-37) H 12/20/21 04:55 ALT 74 Units/L (12-78) 12/20/21 04:55 Alkaline Phosphatase 425 Units/L (46-116) H 12/20/21 04:55 Ammonia 15 umol/L (11-32) 12/13/21 13:05 Total Protein 6.7 g/dL (6.4-8.2) 12/20/21 04:55 Albumin 1.9 g/dL (3.4-5.0) L 12/20/21 04:55 Globulin 4.8 g/dL (2.5-4.5) H 12/20/21 04:55 Albumin/Globulin Ratio 0.4 Ratio (1.1-2.1) L 12/20/21 04:55 Triglycerides 442 mg/dL (0-150) H 12/13/21 13:05 Cholesterol 392 mg/dL (0-200) H 12/13/21 13:05 LDL Cholesterol, Calc 293 mg/dL (0-100) H 12/13/21 13:05 HDL Cholesterol 11 mg/dL (40-60) L 12/13/21 13:05 Cholesterol/HDL Ratio 35.6 (0.0-5.0) H 12/13/21 13:05 Carcinoembryonic Ag 2.1 ng/mL (<=3.8) 12/15/21 05:58 CA 19-9 Antigen 8 U/mL (<=35) 12/15/21 05:58 Specimen Type Clean catch urine 12/15/21 23:01 Urine Color Dark yellow (YELLOW) 12/15/21 23:01 Urine Appearance Hazy (CLEAR) 12/15/21 23:01 Urine pH 6.0 (5.0 - 8.0) 12/15/21 23:01 Ur Specific [place] 1.015 (1.000-1.030) 12/15/21 23:01 Urine Protein Negative (NEGATIVE) 12/15/21 23:01 Urine Glucose (UA) Negative (NEGATIVE) 12/15/21 23:01 Urine Ketones Negative (NEGATIVE) 12/15/21 23:01 Urine Blood 1+ (NEGATIVE) 12/15/21 23: Urine Nitrite Negative (NEGATIVE) 12/15/21 23:01 Urine Bilirubin 2+ (NEGATIVE) 12/15/21 23:01 Urine Urobilinogen 1+ (NORMAL) 12/15/21 23:01 Ur Leukocyte Esterase Negative (NEGATIVE) 12/15/21 23:01 Urine RBC 0-2 /HPF (0-3) 12/15/21 23:01 Urine WBC 0-2 /HPF (0-5) 12/15/21 23:01 Ur Squamous Epith Cells Rare /HPF (NEGATIVE) 12/15/21 23:01 Urine Bacteria Trace /HPF (NEGATIVE) 12/15/21 23:01 Ur Culture Indicated? No/not indicated 12/15/21 23:01 SARS-CoV-2 (PCR) Negative (NEGATIVE) 12/14/21 10:15 Hepatitis A IgM Ab Negative (Negative) 12/13/21 13:05 Hep Bs Antigen Negative (Negative) 12/13/21 13:05 Hep Bs Ag Confirmation TNP 12/13/21 13:05 Hep B Core IgM Ab Negative (Negative) 12/13/21 13:05 Hepatitis C Ab Index 0.08 IV 12/13/21 13:05 Hepatitis C Interp Negative (Negative) 12/13/21 13:05 Hepatitis Interpret See note 12/13/21 13:05 Influenza Type A (PCR) Negative (NEGATIVE) 12/14/21 10:15 Influenza Type B (PCR) Negative (NEGATIVE) 12/14/21 10:15 RSV (PCR) Negative (NEGATIVE) 12/14/21 10:15 Cytology Specimen Cancelled 12/15/21 16:51 Tissue Pathology To follow 12/15/21 16:51 - Assessment and Plan 1: post op partial henry, removal of all gallstones .drainage , liver Bx . suspicion for sclerosing cholangitis .. on IV antibiotics .. awaiting pathology report ,both liver and GB .
[2021-12-21] MEDS: NS 1,000 ML IV 1,000 ML IV SCH ×2 (03:59→10:37)
[2021-12-21] MEDS: DILAUDID INJ IVP PRN ×3 (04:00→13:59)
[2021-12-21 05:06] LABS: BASOPHILS # (AUTO) 0.2 X10^3/uL (0.0-0.1); BASOPHILS % (AUTO) 1.2 % (0.2-1.0); EOSINOPHILS # (AUTO) 0.7 x10^3/uL (0.0-0.2); EOSINOPHILS % (AUTO) 5.1 % (0.9-2.9); HEMATOCRIT 39.4 % (42.0-54.0); HEMOGLOBIN 13.7 g/dL (13.5-18.0); LYMPHOCYTES # (AUTO) 1.9 X10^3/uL (1.3-2.9); LYMPHOCYTES % (AUTO) 13.6 % (21.0-51.0); MEAN CORPUSCULAR HEMOGLOBIN 30.5 pg (27.0-34.0); MEAN CORPUSCULAR HGB CONC 34.6 g/dL (33.0-35.0); MEAN CORPUSCULAR VOLUME 88.1 fL (80.0-100.0); MEAN PLATELET VOLUME 8.8 fL (7.4-11.0); MONOCYTES # (AUTO) 0.8 x10^3/uL (0.3-0.8); MONOCYTES % (AUTO) 5.5 % (0.0-13.0); NEUTROPHILS # (AUTO) 10.6 x10^3/uL (2.2-4.8); NEUTROPHILS % (AUTO) 74.6 % (42.0-75.0); RED BLOOD COUNT 4.48 X10^6/uL (4.7-6.0); RED CELL DISTRIBUTION WIDTH 20.3 % (11.6-16.5); WHITE BLOOD COUNT 14.2 X10^3/uL (3.6-10.0)
[2021-12-21 05:17] LABS: ALANINE AMINOTRANSFERASE 75 Units/L (12-78); ALBUMIN 2.1 g/dL (3.4-5.0); ALKALINE PHOSPHATASE 413 Units/L (46-116); ASPARTATE AMINO TRANSFERASE 63 Units/L (15-37); BLOOD UREA NITROGEN 9 mg/dL (7-18); CALCIUM 7.9 mg/dL (8.5-10.1); CARBON DIOXIDE 23.9 mmol/L (21-32); CHLORIDE 100 mmol/L (98-107); COR CA(FOR HYPOALB) 9.4 mg/dL (8.5-10.1); COR NA(FOR HYPERGLY) 134 mmol/L (136-145); CREATININE 0.63 mg/dL (0.70-1.30); SODIUM 133 mmol/L (136-145); TOTAL PROTEIN 6.7 g/dL (6.4-8.2); eGFR NON BLACK RACES > 60 (>60)
[2021-12-21 06:10] LABS: ANISOCYTOSIS 1+; BAND NEUTROPHILS % 3 % (0-10); BASOPHILS % (MANUAL) 1 % (0-1); METAMYELOCYTES % 2; MYELOCYTES % 1; PLATELET MORPHOLOGY COMMENT NORMAL (NORMAL); TARGET CELLS 1+
[2021-12-21] MEDS: VISTARIL PO PRN (08:21)
[2021-12-21] MEDS: ZESTRIL TAB 10 MG PO SCH (08:21)
[2021-12-21] MEDS: LEVAQUIN PREMIX IV 500 MG 500 MG/100 ML BAG IV SCH (08:23)
[2021-12-21] MEDS: NICOTINE PATCH TD SCH (08:23)
[2021-12-21] MEDS: K-DUR TAB 20 MEQ PO PRN (09:55)
[2021-12-21 13:53] VITALS: BP 137/90
== END 2021-12-21 15:45 | disposition home or self-care (01) | DRG 421 ==
LOC: MED/SURG
PROVIDERS: ADMIT Obstetrics & Gynecology Obstetrics; ATTEND Obstetrics & Gynecology Obstetrics
DX: E87.1 Hypo-osmolality and hyponatremia; K80.10 Calculus of gallbladder with chronic cholecystitis without obstruction; R19.5 Other fecal abnormalities; Z87.19 Personal history of other diseases of the digestive system; R17 Unspecified jaundice; K82.8 Other specified diseases of gallbladder; E80.6 Other disorders of bilirubin metabolism; R74.8 Abnormal levels of other serum enzymes; K83.09 Other cholangitis; Z20.822 Contact with and (suspected) exposure to COVID-19